=== PATIENT | female | born 1970 | race Caucasian/White ===

== ENCOUNTER 2017-03-13 21:09 | Emergency (ER) | payer OTHER ==
--- NOTE | ~2017-03-13 | ER ---
PATIENT'S NAME: PATRICIA HOU [facility] AGE: 46 Y [address] ROOM: [place] [address] LOCATION: ED ADMIT DATE: 03/13/2017 ER/Outpatient Report DISCHARGE DATE: 03/13/2017 FAMILY PHYSICIAN: SHIRA CARBAJAL APRN ATTENDING PHYSICIAN: Angela Rivera Time of Admission: 2109 hours. Time of evaluation: 2127 hours. CHIEF COMPLAINT: Migraine headache. HISTORY OF PRESENT ILLNESS: Patricia is a 46-year-old female, who presents to the emergency room with her with complaints of a migraine headache. I did review records prior to seeing her, has a longstanding history of migraines. She currently has been going to [facility] for SphenoCath, which helps abort her migraines. The last time she had one was in October 2016. She has had a few headaches off and on since then, but has been able to use some skgi-opr-fnebdyf medicine at home and has been able to get rid of them. She reports the headache tonight is behind both eyes, ophthalmic, which is very classic for her. She did vomit and once gets to this point, things do not get better. She does comment to myself that on MRI, she does believe to have a pseudotumor. She is set up to see a nurse practitioner on March 19, 2017, here in [place], [place]. She is up-to-date with her MRI and also has had a spinal tap in the past. The patient has received Nubain along with Phenergan in the past. I did review these records and recommendations. PAST MEDICAL HISTORY: 1. Hypothyroidism. 2. Migraine headaches. 3. Postoperative cholecystectomy. 4. Postoperative exploratory laparotomy. 5. Postoperative heart catheterization. ALLERGIES: PLEASE NOTE SHE HAS MANY ALLERGIES, WHICH I REVIEWED, THEY ARE DOCUMENTED ON THE CHART. MEDICATIONS: Reviewed and documented on the chart. SOCIAL HISTORY: The patient denies smoking, drug, or alcohol use. PATIENT'S NAME: PATRICIA HOU [facility] AGE: 46 Y [address] ROOM: [place] [address] LOCATION: ED ADMIT DATE: 03/13/2017 ER/Outpatient Report DISCHARGE DATE: 03/13/2017 FAMILY PHYSICIAN: SHIRA CARBAJAL APRN ATTENDING PHYSICIAN: Angela Rivera REVIEW OF SYSTEMS: All systems were reviewed by myself and negative with the exception of those noted in the HPI. PHYSICAL EXAMINATION: VITAL SIGNS: Height 5 feet 8 inches, weight 129.3 kg, temp 98.2, pulse 81, respirations 20, blood pressure 156/84, she is 94% on room air. GENERAL: Patricia is alert, cooperative. The lights are dimmed down, she is having some photosensitivity. SKIN: Overall is within normal limits. HEENT: Head: Normocephalic, atraumatic. Eyes: Pupils equal, round, and reactive to light, EOMs intact. Mouth and throat: Oropharynx is clear. Tongue is midline. NECK: Supple, no nuchal rigidity noted, full range of motion. CHEST AND LUNGS: Lung sounds are clear throughout. HEART: Regular rate and rhythm without murmur. NEUROLOGIC: Strength in upper and lower extremities 5/5. Deep tendon reflexes intact bilaterally, no focal deficits are noted. LABORATORY DATA AND X-RAYS: Please note, there were no x-rays and/or labs performed with this visit. ASSESSMENT: Migraine headache, ophthalmic. PLAN: It does sound like SphenoCath are very effective for her, and she can continue to go to [facility] and get those as needed. The patient does have some nausea medicine at home that she may use, we will go ahead with Nubain 5 mg IM x1, Phenergan 50 mg IM x1. I did let her know, based on previous records that after she does see Martínez, the nurse practitioner working with Dr. Francis here, she will need to have some kind of note sent down indicating if she does come in, this is what they would prefer as the Nubain was based on a prior neurologist. The patient does agree to this and will follow up as indicated. The patient's condition is stable. SOM YAÑEZ APRN FOR MD JESUS MANZANARES/alexi /[id number] d: 03/14/170 t: 03/23/17 1909, OUTPATIENT REPORT
== END 2017-03-13 21:53 | disposition disaster alternative care site (69) ==
LOC: GMED 21:09
DX: G43.809 Other migraine, not intractable, without status migrainosus (principal); E03.9 Hypothyroidism, unspecified; Z90.49 Acquired absence of other specified parts of digestive tract; Z98.890 Other specified postprocedural states; Z88.8 Allergy status to other drugs, medicaments and biological substances; Z88.1 Allergy status to other antibiotic agents; Z88.5 Allergy status to narcotic agent; Z91.013 Allergy to seafood; Z79.899 Other long term (current) drug therapy
CPT/HCPCS: J2300; J2550

== ENCOUNTER 2017-03-19 21:04 | Emergency (ER) | payer OTHER ==
--- NOTE | ~2017-03-19 | ER ---
PATIENT'S NAME: PATRICIA HOU [facility] AGE: 46 Y [address] ROOM: [place] [address] LOCATION: [facility] ADMIT DATE: 03/19/2017 ER/Outpatient Report DISCHARGE DATE: 03/19/2017 FAMILY PHYSICIAN: Physician, Unknown ATTENDING PHYSICIAN: Camilo Farr Time of Arrival: 2104 hours. Time of Evaluation: 2115 hours. CHIEF COMPLAINT: Left shoulder/back pain. HISTORY OF PRESENT ILLNESS: This is a 46-year-old female, who presents to the ER, who states that she picked up her daughter this morning and afterwards felt some tightness and kind like a muscular spasm in her left upper back around her shoulder blade. She states that she did take some Tylenol after the incident, but it has not improved her pain, and states it has gotten a little bit worse throughout the day. She denies any other problems at this time. ALLERGIES AND MEDICATIONS: Please see medication list in nurse's notes. PAST MEDICAL HISTORY: 1. Hypothyroidism. 2. Hypertension. 3. Migraines. 4. Cholecystectomy. 5. Hysterectomy. 6. Heart catheterization. 7. Laparoscopic surgery. SOCIAL HISTORY: Drinks alcohol occasionally. Denies any smoking use. REVIEW OF SYSTEMS: All systems were reviewed and were negative with the exception of those discussed in the HPI. PHYSICAL EXAMINATION: VITAL SIGNS: Weight 130.6 kg taken, blood pressure is 185/101, pulse 82, respirations 16, temperature 98.3 degrees tympanically, saturations 93% on room air. Lynn Coma Score is 15. GENERAL: An alert, morbidly obese female, in mild distress. HEENT: Head: Normocephalic. She does display moist mucous membranes. PATIENT'S NAME: PATRICIA HOU [facility] AGE: 46 Y [address] ROOM: [place], [place] [address] LOCATION: [facility] ADMIT DATE: 03/19/2017 ER/Outpatient Report DISCHARGE DATE: 03/19/2017 FAMILY PHYSICIAN: Physician, Unknown ATTENDING PHYSICIAN: Camilo Farr LUNGS: Clear to auscultation bilaterally. HEART: Regular rate and rhythm. EXTREMITIES: No clubbing or cyanosis. She does have decreased range of motion of her left upper extremity secondary to pain. She does have pin point tenderness over her left scapula and the paraspinous muscles adjacent to that area. Her muscles do seem to be spasmed in that area. LABORATORY DATA AND X-RAYS: None were done. IMPRESSION: Left upper back muscular spasm. ASSESSMENT AND PLAN: We will dismiss the patient home with a prescription for Flexeril to use as directed. I advised her to place heat or ice to the area, massage the area, and may take ibuprofen as needed for pain. She should follow up with her primary care physician if she does not improve. The patient understands and agrees with care. ERICA NOEAL PA-C FOR MD JIA BELTRAN/alexi /[id number] d: t: 03/20/17 2255, OUTPATIENT REPORT
== END 2017-03-19 21:24 | disposition disaster alternative care site (69) ==
LOC: GACC 21:04
DX: M62.830 Muscle spasm of back (principal); E03.9 Hypothyroidism, unspecified; I10 Essential (primary) hypertension; Z90.49 Acquired absence of other specified parts of digestive tract; Z90.710 Acquired absence of both cervix and uterus; Z88.6 Allergy status to analgesic agent; Z88.1 Allergy status to other antibiotic agents; Z88.5 Allergy status to narcotic agent; Z88.8 Allergy status to other drugs, medicaments and biological substances; Z91.013 Allergy to seafood; Z79.899 Other long term (current) drug therapy

== ENCOUNTER 2017-04-22 21:58 | Emergency (ER) | payer OTHER ==
--- NOTE | ~2017-04-22 | ER ---
PATIENT'S NAME: PATRICIA HOU [facility] AGE: 46 Y [address] ROOM: [place] [address] LOCATION: [facility] ADMIT DATE: 04/22/2017 ER/Outpatient Report DISCHARGE DATE: 04/22/2017 FAMILY PHYSICIAN: Physician, Unknown ATTENDING PHYSICIAN: Juan Modi TIME OF EVALUATION: 2240 hours. HISTORY OF PRESENT ILLNESS: This is a 46-year-old female, well known to the emergency room, who presents with a migraine that started earlier today. Headache has been associated with nausea, blurred vision, photophobia, which quality mcdermott and symptom mcdermott is similar to previous migraines. The patient states she has been undergoing periodic therapy in [place] where they inject lidocaine into her frontal sinuses, which has worked well to control her migraines. ALLERGIES: SEE COPIED LIST. CURRENT MEDICATIONS: 1. Topamax 200 mg b.i.d. 2. Lisinopril 40 mg daily. 3. Bystolic 20 mg daily. 4. Synthroid mcg daily. MEDICAL HISTORY: She has a history of hypothyroidism, hypertension, chronic migraines, anemia. SURGERIES: Cholecystectomy, hysterectomy. SOCIAL HISTORY: Denies current tobacco use. Alcohol, rarely. REVIEW OF SYSTEMS: GENERAL: Denies fevers or chills. HEENT: Includes migraine, which is mostly frontal, similar to previous. She has had some blurred vision. NECK: Denies stiff neck. RESPIRATORY: Negative. CARDIOVASCULAR: Negative. GASTROINTESTINAL: Nausea, no vomiting. PHYSICAL EXAMINATION: PATIENT'S NAME: PATRICIA HOU [facility] AGE: 46 Y [address] ROOM: [place] [address] LOCATION: [facility] ADMIT DATE: 04/22/2017 ER/Outpatient Report DISCHARGE DATE: 04/22/2017 FAMILY PHYSICIAN: Physician, Unknown ATTENDING PHYSICIAN: Juan Modi VITAL SIGNS: Her initial blood pressure was 204/115, her respiratory rate 16, pulse 71, her O2 saturations 98%. GENERAL APPEARANCE: Alert, no obvious distress. HEENT: She had no temporal tenderness. Pupils appeared equal and reactive. Mouth: Oral membranes moist. NECK: No rigidity. No adenopathy. NEURO: Her speech and gait appeared normal and appropriate. ASSESSMENT: Acute migraine. PLAN: Nubain 10, Phenergan 25 IM. The patient is to follow up with her neurologist as needed. JESSICA RIOS FOR MD BEBE VILLALPANDO/modl /[id number] d: 04/23/17 0018 t: 05/05/17 1216, OUTPATIENT REPORT
== END 2017-04-22 22:53 | disposition disaster alternative care site (69) ==
LOC: GMED 21:58
DX: G43.909 Migraine, unspecified, not intractable, without status migrainosus (principal); E03.9 Hypothyroidism, unspecified; I10 Essential (primary) hypertension; Z90.49 Acquired absence of other specified parts of digestive tract; Z90.710 Acquired absence of both cervix and uterus; Z86.2 Personal history of diseases of the blood and blood-forming organs and certain disorders involving the immune mechanism; Z79.899 Other long term (current) drug therapy
CPT/HCPCS: J2300; J2550

== ENCOUNTER → 2017-05-02 | Outpatient (CLI) | payer OTHER | END | disposition disaster alternative care site (69) | LOC: GRAD 03-20 13:27 | DX: R91.1 Solitary pulmonary nodule (principal) ==

== ENCOUNTER 2017-05-05 11:53 | Emergency (ER) | payer OTHER ==
--- NOTE | ~2017-05-05 | ER ---
PATIENT'S NAME: PATRICIA HOU [facility] AGE: 46 Y [address] ROOM: [place] [address] LOCATION: ED ADMIT DATE: 05/05/2017 ER/Outpatient Report DISCHARGE DATE: 05/05/2017 FAMILY PHYSICIAN: Physician, Unknown ATTENDING PHYSICIAN: Mitchell Olson CHIEF COMPLAINT: Migraine. HISTORY OF PRESENT ILLNESS: Ms. Hou states she has been fighting a headache for several days. She came in with her granddaughter for evaluation of her respiratory illness today; however, the plan is to have the granddaughter stay with Ms Hou, she felt she would not be capable of taking care of the child if she had her persistent headache. She is requesting treatment for her headache. She has plans to get her procedure done on . This is her typical headache. There is nothing new or different about it. She has had some nausea and vomiting associated with it. PAST MEDICAL HISTORY: Documented on the record and reviewed by me. SOCIAL HISTORY: Documented on the record and reviewed by me. MEDICATIONS: Documented on the record and reviewed by me. ALLERGIES: DOCUMENTED ON THE RECORD AND REVIEWED BY ME. REVIEW OF SYSTEMS: All systems are reviewed and negative except as noted in the HPI. PHYSICAL EXAMINATION: VITAL SIGNS: Blood pressure 153/95, pulse 83, respiratory rate 16, temperature 98.6, SpO2 is 94% on room air. Pain 7/10. GENERAL: An age appropriate female, sitting upright on exam table. Appropriate and alert. No apparent pain or distress. NEUROLOGIC: Awake and alert. GCS 15. No focal deficits. No asymmetry. No photophobia or meningismus. HEENT: Normocephalic, atraumatic. Eyes are PERRL. Oropharynx is clear. NECK: Supple. Trachea is midline. CHEST/HEART: Regular rate and rhythm with no murmurs. LUNGS: Clear to auscultation bilaterally. No rhonchi, wheezes, or rales. PATIENT'S NAME: PATRICIA HOU [facility] AGE: 46 Y [address] ROOM: [place] [address] LOCATION: ED ADMIT DATE: 05/05/2017 ER/Outpatient Report DISCHARGE DATE: 05/05/2017 FAMILY PHYSICIAN: Physician, Unknown ATTENDING PHYSICIAN: Mitchell Olson ABDOMEN: Soft, benign. BACK: Normal to inspection and palpation. EXTREMITIES: Warm and well perfused. SKIN: Clean, dry, and intact. No rashes. LABORATORY DATA AND X-RAYS: Labs and x-rays: None. IMPRESSION: Migraine. EMERGENCY DEPARTMENT COURSE: The patient was seen and evaluated. She is given IM Nubain 10 mg and IM Phenergan 50 mg. She was discharged prior to resolution of symptoms per her request. The patient is to follow up as needed. MD HARRIS DAVIS/alexi /[id number] d: 05/06/1735 t: 05/13/17 1010, OUTPATIENT REPORT
== END 2017-05-05 12:50 | disposition disaster alternative care site (69) ==
LOC: GMED 11:53
DX: G43.909 Migraine, unspecified, not intractable, without status migrainosus (principal); Z79.899 Other long term (current) drug therapy
CPT/HCPCS: J2300; J2550

== ENCOUNTER 2017-05-28 19:30 | Emergency (ER) | payer OTHER ==
--- NOTE | ~2017-05-28 | ER ---
PATIENT'S NAME: PATRICIA HOU [facility] AGE: 47 Y [address] ROOM: [place] [address] LOCATION: ED ADMIT DATE: 05/28/2017 ER/Outpatient Report DISCHARGE DATE: 05/28/2017 FAMILY PHYSICIAN: Physician, Unknown ATTENDING PHYSICIAN: Ritika Rinaldi TIME OF ARRIVAL: 1936 hours. TIME OF EXAM: 1945 hours. CHIEF COMPLAINT: Neck pain and fever. HISTORY OF PRESENT ILLNESS: The patient states she awoke this morning with a stiff neck at approximately 8:30, she found maybe she had slept wrong, but as the day has gone on, the pain has gotten worse. She also felt feverish and states she had a temp of 102 at home. She has been nauseated, vomited x2, and has developed a headache. She has a history of migraines, the headache is similar to headaches that she has had in the past, just very tender in the posterior neck region. Denies any trauma, has not fallen or been injured in anyway. ALLERGIES: ARE ON HER CHART AND REVIEWED BY ME. MEDICATIONS: Are on her chart and reviewed by me. PAST MEDICAL HISTORY: Migraine headaches, hypothyroidism, hypertension, and anemia. PAST SURGICAL HISTORY: Hysterectomy, cholecystectomy, eye surgery, and colonoscopy. SOCIAL HISTORY: Denies use of tobacco, drugs, drinks alcohol on a rare occasion. REVIEW OF SYSTEMS: Negative other than those mentioned in the HPI. PHYSICAL EXAMINATION: VITAL SIGNS: She weighed 132.4 kg. Blood pressure initially was 196/105, pulse of 81, respirations 18, temp of 98.8, and O2 sat was 97% on room air. PATIENT'S NAME: PATRICIA HOU [facility] AGE: 47 Y [address] ROOM: [place] [address] LOCATION: ED ADMIT DATE: 05/28/2017 ER/Outpatient Report DISCHARGE DATE: 05/28/2017 FAMILY PHYSICIAN: Physician, Unknown ATTENDING PHYSICIAN: Ritika Rinaldi GENERAL: She is awake, alert, and oriented x4. SKIN: [place], warm, and dry. RESPIRATIONS: Even and nonlabored. LUNGS: Sounds are clear throughout. HEART: Regular rate and rhythm. MUSCULOSKELETAL: She is tender to palpate the posterior neck area. EMERGENCY ROOM COURSE: She was given Nubain 10 mg IM and Phenergan 50 mg IM. Lab work was drawn. CBC is within normal limits. Chem panel is within normal limits. Lactate was 1.1. Procalcitonin was normal. IMPRESSION: 1. Neck strain. 2. Headache. PLAN: The patient will be discharged home to rest, use ice or heat to the neck area, continue on Tylenol as needed if she develops more fevers. If her symptoms do not improve, she is to follow up with her primary provider. She verbalized understanding. SHAHLA ARCHER APRN FOR MD SHONDA CUEVAS/alexi /[id number] d: 05/29/17 0236 t: 05/31/17 1609, OUTPATIENT REPORT
[2017-05-28 20:16] LABS: BASOPHIL # 0.1 K/uL (0.0-0.2); BASOPHIL % 0.8 %; EOSINOPHIL # 0.1 K/uL (0.0-0.5); HEMATOCRIT 43.1 % (33.0-46.0); IMMATURE GRANULOCYTE % 0.2 %; LYMPHOCYTE # 2.1 K/uL (0.8-4.0); LYMPHOCYTE % 23.7 %; MCH 30.9 pg (27.0-34.0); MCHC 34.8 gm/dL (32.0-36.5); MCV 88.7 fl (83.0-98.0); MONOCYTE # 0.6 K/uL (0.0-1.0); MONOCYTE % 7.2 %; MPV 11.1 fl (9.4-12.4); NEUTROPHIL % 67.1 %; NRBC % 0 /100WBC (0-0.00); PLATELET COUNT 275 K/uL (150-450); RBC 4.86 M/uL (3.50-5.50); RDW-CV 12.4 % (11.9-14.6); WBC 8.9 K/uL (4.0-11.0)
[2017-05-28 20:34] LABS: ALBUMIN 3.6 gm/dL (3.5-5.0); ALK PHOS 106 IU/L (33-138); ALT 70 IU/L (12-78); ANION GAP 11.7 (10.0-19.0); AST 30 IU/L (10-40); BLOOD UREA NITROGEN 15 mg/dL (6-24); CALCIUM 8.7 mg/dL (8.5-10.5); CHLORIDE 106 mMol/L (96-110); CO2 25 mMol/L (22-32); CREATININE 0.7 mg/dL (0.5-1.1); POTASSIUM 3.7 mMol/L (3.7-5.1); SODIUM 139 mMol/L (135-145); TOTAL BILIRUBIN 0.4 mg/dL (0.0-1.5); TOTAL PROTEIN 7.2 g/dL (6.0-8.4)
== END 2017-05-28 20:28 | disposition disaster alternative care site (69) ==
LOC: GMED 19:30
PROVIDERS: Nurse Practitioner Family
DX: S16.1XXA Strain of muscle, fascia and tendon at neck level, initial encounter (principal); R51 Headache; I10 Essential (primary) hypertension; E03.9 Hypothyroidism, unspecified; D64.9 Anemia, unspecified; Z90.710 Acquired absence of both cervix and uterus; Z90.49 Acquired absence of other specified parts of digestive tract; Z88.1 Allergy status to other antibiotic agents; Z88.0 Allergy status to penicillin; Z88.5 Allergy status to narcotic agent; Z88.8 Allergy status to other drugs, medicaments and biological substances; Z79.899 Other long term (current) drug therapy; X58.XXXA Exposure to other specified factors, initial encounter
CPT/HCPCS: J2300; J2550

== ENCOUNTER 2017-06-09 16:40 | Emergency (ER) | payer OTHER ==
--- NOTE | ~2017-06-09 | ER ---
PATIENT'S NAME: PATRICIA HOU [facility] AGE: 47 Y [address] ROOM: [place] [address] LOCATION: ED ADMIT DATE: 06/09/2017 ER/Outpatient Report DISCHARGE DATE: 06/09/2017 FAMILY PHYSICIAN: Physician, Unknown ATTENDING PHYSICIAN: Mitchell Olson TIME OF EVALUATION: 1650. CHIEF COMPLAINT: Left-sided jaw pain, feeling short of breath, heart palpitations. HISTORY OF PRESENT ILLNESS: The patient is a 47-year-old female. She is well known to the emergency room. She states that a week ago she was seen at [facility] Emergency Room and admitted with left jaw pain. Admission was to rule out possible coronary artery disease. The patient initially had slight elevation of her troponins. The patient did undergo cardiac cath, which showed no blockage. She also believe had an echo done of her heart. The patient today said that about 3 o'clock this morning she started to feel short of breath, felt like her heart was racing. She then also started having left jaw pain again. She denies fever or chills. Denies any dental issues. ALLERGIES: INCLUDE SEVERAL MEDICATIONS; PERCOCET, IODINE, TORADOL, Z-EVELIA, DEPAKOTE, KEFLEX, PENICILLIN, HYDROCODONE, IMITREX, DHE. CURRENT MEDICINES: 1. Seroquel. 2. Bystolic. 3. Synthroid. 4. Topamax. PAST MEDICAL HISTORY: Includes hypothyroidism, hypertension, history of migraines. FAMILY HISTORY: Significant for heart disease. The patient has undergone previous heart catheterization and cardiac workup in the distant past. SOCIAL HISTORY: Currently does not smoke. Alcohol rarely. PATIENT'S NAME: PATRICIA HOU [facility] AGE: 47 Y [address] ROOM: [place] [address] LOCATION: ED ADMIT DATE: 06/09/2017 ER/Outpatient Report DISCHARGE DATE: 06/09/2017 FAMILY PHYSICIAN: Physician, Unknown ATTENDING PHYSICIAN: Mitchell Olson REVIEW OF SYSTEMS: HEAD AND ENT: No recent migraines. Denies any visual changes. She does complain of left-sided jaw pain. Denies sore throat. Denies any dental pain. RESPIRATORY: [place] short of breath at times. No hemoptysis. No cough. CARDIOVASCULAR: Denies any substernal chest pain. She did feel that she had some heart palpitations this morning. GASTROINTESTINAL: No change in bowel habits. No nausea or vomiting. GENITOURINARY: Negative. MUSCULOSKELETAL: No complaints of any calf pain. PHYSICAL EXAMINATION: VITAL SIGNS: Her blood pressure was 169/95, her temperature is 98.2, respiratory rate 20, pulse 77, O2 saturations 94% on room air. GENERAL APPEARANCE: Alert, somewhat anxious. HEAD: Normocephalic. EYES: PERRL. Extraocular muscles intact. EARS: TMs also appeared normal. NOSE: Septum midline. MOUTH: Oral membranes moist. NECK: Some tenderness over the angle of her jaw. There is no swelling. No redness. No adenopathy in the area. LUNGS: Peripherally were clear. HEART: Rhythm appeared regular. No murmurs or gallop. ABDOMEN: Soft, nontender. EXTREMITIES: Her calves were not swollen. There was negative Homans sign. DIAGNOSTIC STUDIES: Chest x-ray; heart size and mediastinal structures appeared normal, lung holden were clear. EKG showed a normal sinus rhythm without any ischemic changes. CMS, calcium slightly low at 8.4. ALT slightly elevated at 79. Magnesium 2.1. CPK 66, her CK-MB was less than 0.5, troponin also less than 0.040. D-dimer was 0.27. CBC; white count 5.9, hemoglobin 14.5. Protime 9.7, INR 0.92. ASSESSMENT: 1. Left-sided jaw pain. 2. Hypothyroidism. 3. Hypertension. 4. History of migraines. PLAN: The patient was also seen by Dr. Olson, who talked to the patient at great length concerning findings. His recommendation was ibuprofen 600 mg every 6 hours for the next 5 days. Follow up if it does not improve. The patient was given 50 mcg of fentanyl IV. PATIENT'S NAME: PATRICIA HOU [facility] AGE: 47 Y [address] ROOM: [place], [place] [address] LOCATION: [facility] ADMIT DATE: 06/09/2017 ER/Outpatient Report DISCHARGE DATE: 06/09/2017 FAMILY PHYSICIAN: Physician, Unknown ATTENDING PHYSICIAN: Mitchell Olson JESSICA RIOS FOR MD BEBE DAVIS/modl /[id number] d: t: 06/10/17 0005, OUTPATIENT REPORT
[2017-06-09 17:31] LABS: BASOPHIL # 0.1 K/uL (0.0-0.2); EOSINOPHIL # 0.1 K/uL (0.0-0.5); EOSINOPHIL % 0.9 %; HEMATOCRIT 41.8 % (33.0-46.0); HEMOGLOBIN 14.5 g/dL (10.0-15.0); IMMATURE GRANULOCYTE % 0.2 %; LYMPHOCYTE # 1.7 K/uL (0.8-4.0); LYMPHOCYTE % 29.7 %; MCH 30.7 pg (27.0-34.0); MCHC 34.7 gm/dL (32.0-36.5); MCV 88.6 fl (83.0-98.0); MONOCYTE # 0.6 K/uL (0.0-1.0); MONOCYTE % 9.4 %; MPV 11.3 fl (9.4-12.4); NEUTROPHIL # (ANC) 3.5 K/uL (1.8-7.8); NEUTROPHIL % 58.8 %; NRBC % 0 /100WBC (0-0.00); PLATELET COUNT 261 K/uL (150-450); RBC 4.72 M/uL (3.50-5.50); RDW-CV 12.3 % (11.9-14.6); WBC 5.9 K/uL (4.0-11.0)
[2017-06-09 17:41] LABS: INR - (THERAPEUTIC) 0.92 (0.92-1.07); PROTIME 9.7 SECONDS (9.8-11.4); PTT 26 SECONDS (25-32)
[2017-06-09 17:50] LABS: ALBUMIN 3.5 gm/dL (3.5-5.0); ALK PHOS 81 IU/L (33-138); ALT 79 IU/L (12-78); ANION GAP 10.7 (10.0-19.0); AST 38 IU/L (10-40); BLOOD UREA NITROGEN 11 mg/dL (6-24); CALCIUM 8.4 mg/dL (8.5-10.5); CHLORIDE 109 mMol/L (96-110); CO2 25 mMol/L (22-32); CPK 66 IU/L (21-215); CREATININE 0.7 mg/dL (0.5-1.1); MAGNESIUM 2.1 mg/dL (1.8-2.6); POTASSIUM 3.7 mMol/L (3.7-5.1); SODIUM 141 mMol/L (135-145); TOTAL PROTEIN 7.1 g/dL (6.0-8.4)
[2017-06-09 17:51] LABS: TOTAL BILIRUBIN 0.6 mg/dL (0.0-1.5)
== END 2017-06-09 18:17 | disposition disaster alternative care site (69) ==
LOC: GMED 16:40
PROVIDERS: Emergency Medicine
DX: R68.84 Jaw pain (principal); I10 Essential (primary) hypertension; E03.9 Hypothyroidism, unspecified; G43.909 Migraine, unspecified, not intractable, without status migrainosus; Z88.0 Allergy status to penicillin; Z88.8 Allergy status to other drugs, medicaments and biological substances; Z79.899 Other long term (current) drug therapy; Z87.891 Personal history of nicotine dependence; I25.10 Atherosclerotic heart disease of native coronary artery without angina pectoris
CPT/HCPCS: J3010